=== PATIENT | male | born 1995 | race Caucasian/White ===

== ENCOUNTER 2022-09-21 19:30 | Emergency (ER) | payer OTHER, SELFPAY ==
[2022-09-21 19:40] VITALS: BP 131/81; PULSE 88; RESP 20; TEMP 36.6; O2SAT 100
--- NOTE | 2022-09-21 19:40 | ED.ANIMALBIT ---
HPI - Animal Bite General Chief Complaint: Extremity Injury, Lower Stated Complaint: Dog Bite Time Seen by Provider: 09/21/22 19:36 Source: patient and RN notes reviewed Mode of arrival: ambulatory Limitations: no limitations History of Present Illness complaint: animal bite Onset (ago): hour(s) (1) Animal: dog Description of animal: unknown animal Mechanism: bite Location - Extremities: Left: thigh Pain description: dull Context: unprovoked Associated symptoms: none Related Data Patient tetanus UTD: Yes Allergies Allergy/AdvReac Type Severity Reaction Status Date / Time No Known Allergies Allergy Verified 04/18/22 07:38 Review of Systems Review of Systems: All systems reviewed & are unremarkable except as noted in HPI and below PMFSH Past Medical History Medical History No active medical problems Surgical History Surgical History History of appendectomy May 2011 Family History Family History (System 04/18/22 @ 07:38 by Sina Hsu) Father Healthy adult Mother Healthy adult Social History Social History Smoking status: Never smoker Living arrangements: with family Gender identity (if verbalized by the patient): Male Exam Const: General: healthy appearing, no acute distress and alert Nutritional Appearance: well nourished Orientation/consciousness: patient oriented x3 Limitations: no limitations HENMT: Head: normal to inspection Ears: external ears normal Face/Nose/Sinus: Normal external nose present Face and sinus: normal facial exam Mouth: Yes moist mucous membranes Eyes: Conjunctivae: conjunctivae normal Pupils: Equal, round and reactive pupils present EOM: EOMs intact bilaterally Neck: Neck: normal visual inspection Resp: Effort & Inspection: normal respiratory effort Auscultation: clear to auscultation bilaterally Cardio: Rate: regular rate Rhythm: regular rhythm GI: GI Palp: Yes Soft to palpation and No Tenderness to palpation present (GI) Auscultation: normal bowel sounds Back/Spine/Pelvis: Cervical Spine: cervical ROM normal Thoracic/Lumbar Spine: thoraco-lumbar ROM normal Skin: General skin exam: normal color Rashes: no rashes Wounds: wounds noted puncture wound left lateral upper leg size (3 mm superficial) Neuro: General: patient oriented x3, moves all extremities, no focal motor deficits and CN's II-XI intact bilaterally Speech: normal speech Gait exam (Neuro): Normal gait present Extrem: General: normal to inspection and no clubbing, cyanosis or edema Psych: Mental Status: mental status grossly normal Affect: normal affect Attitude: cooperative Course Vital Signs Vital signs: Vital Signs Temperature 36.6 C 09/21/22 19:40 Pulse Rate 88 09/21/22 19:40 Respiratory Rate 20 09/21/22 19:40 Blood Pressure 131/81 09/21/22 19:40 Pulse Oximetry 100 09/21/22 19:40 Oxygen Delivery Room Air 09/21/22 19:40 Temperature 37.1 C 09/21/22 20:01 Pulse Rate 89 09/21/22 20:01 Respiratory Rate 20 09/21/22 20:01 Blood Pressure 131/81 09/21/22 20:01 Pulse Oximetry 99 09/21/22 20:01 Oxygen Delivery Room Air 09/21/22 20:01 MDM - Animal Bite Differential Diagnosis Differential diagnosis: Likely dog bite Discharge Plan Discharge Clinical Impression: Dog bite Qualifiers: Encounter type: initial encounter Qualified Code(s): W54.0XXA - Bitten by dog, initial encounter Patient Disposition: Home, Self-Care Condition: Stable Instructions: Antibiotic Form, Animal Bite (ED) Prescriptions: New clindamycin HCl 300 mg capsule 300 mg PO TID 7 Days Qty: 21 0RF doxycycline monohydrate 100 mg capsule 100 mg PO BID 7 Days Qty: 14 0RF Follow-up/Referrals: Mejia Ugarte DO [Primary Care Provider] - Time of Disposition: 19:48
[2022-09-21] MEDS: DOXYCYCLINE HYCLATE 100 MG TABLET PO (19:59)
[2022-09-21] MEDS: CLINDAMYCIN HCL 150 MG CAP 300 MG PO (19:59)
[2022-09-21 20:01] VITALS: BP 131/81; PULSE 89; RESP 20; TEMP 37.1; O2SAT 99
== END 2022-09-21 20:03 | disposition home or self-care (01) ==
PROVIDERS: Emergency Provider Emergency Medicine; PCP Family Medicine
DX: S71.152A Open bite, left thigh, initial encounter (principal); W54.0XXA Bitten by dog, initial encounter
CPT/HCPCS: 99283; A9270

== ENCOUNTER 2023-03-15 11:05 | Outpatient (CLI) | payer BC, SELFPAY | END 2023-03-15 11:06 | disposition home or self-care (01) | PROVIDERS: PCP Family Medicine; Visit Provider Family Medicine | DX: T78.40XA Allergy, unspecified, initial encounter (principal) | CPT/HCPCS: 36415; 86003 ==

== ENCOUNTER 2024-10-30 07:33 | Outpatient (CLI) | payer BC, SELFPAY ==
--- OUTSIDE RECORDS SUMMARY | 2024-10-30 07:36 | XMS_ITS | Clinical Summary ---
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 Role Phone Unavailable Primary Care Provider Unavailabl e Social History Tobacco Use Types Packs/Day Years Used Date Smoking Tobacco: Never Assessed Sex and Gender Information Value Date Recorded Sex Assigned at Not on file Legal Sex Male 5:57 PM [employer] Gender Identity Not on file Sexual Orientation Not on file Plan of Treatment Health Maintenance Due Date Last Done Comments Annual Physical 1996 Hepatitis C 2011 DTaP, Tdap and Td Vaccines ( 1 - Tdap) 2012 Hepatitis B Vaccines (1 of 3 - 19+ 3-dose series) 2012 COVID-19 Vaccine ( - 2023-2 5 season) 2024 HPV Vaccines Aged Out No longer eligi ble based on patient's age to complete this topic Meningococcal B Vaccine Aged Out No l onger eligible based on patient's age to complete this topic Meningococcal Vaccine Aged Out No royer jakub eligible based on patient's age to complete this topic Pneumococcal Vaccine: Pediat rics (0 to 5 Years) and At-Risk Patients (6 to 49 Years) Aged Out No longer eligible b ased on patient's age to complete this topic RSV Immunizations Under 20 Months Aged Out No longer eligible based on patient's age to complete this topic
[2024-10-30 07:44] LABS: Basophils Absolute Auto 0.07 K/mm3 (0.00-0.10); Basophils Percent Auto 1.1 % (0.0-1.0); Eosinophils Absolute Auto 0.25 K/mm3 (0.02-0.50); Eosinophils Percent Auto 4.1 % (1.0-6.0); Hematocrit 47.6 % (40.0-54.0); Hemoglobin 16.7 g/dL (14.0-18.0); Immature Granulocyte Absolute 0.02 K/mm3 (0.00-0.00); Immature Granulocyte Percent A 0.3 % (0.0-0.0); Lymphocytes Absolute Auto 1.87 K/mm3 (1.10-4.50); Lymphocytes Percent Auto 30.7 % (18.0-42.0); Mean Corpuscular HGB Conc 35.1 g/dL (32-36); Mean Corpuscular Hemoglobin 33.7 pg (27.0-31.0); Mean Platelet Volume 9.4 fl (8.7-11.0); Monocytes Absolute Auto 0.55 K/mm3 (0.10-0.90); Neutrophils Absolute Auto 3.33 K/mm3 (1.70-7.20); Neutrophils Percent Auto 54.8 % (50.0-70.0); Platelet Count Result 171 K/mm3 (150-420); Red Blood Count 4.96 M/mm3 (4.70-6.10); Red Cell Distribution Width 12.7 % (11.6-14.4); White Blood Count 6.1 K/mm3 (4.8-10.8)
[2024-10-30 10:22] LABS: Alanine Aminotransferase 47 U/L (16-63); Albumin Level 3.8 g/dL (3.4-5.0); Alkaline Phosphatase 99 U/L (46-116); Anion Gap 9 mmol/L (4-12); Aspartate Amino Transferase 16 U/L (15-37); Bilirubin,Total 0.7 mg/dL (0.00-1.00); Blood Urea Nitrogen 13 mg/dL (7-18); Calcium 8.9 mg/dL (8.5-10.1); Carbon Dioxide 30 mmol/L (21-32); Chloride 105 mmol/L (98-108); Cholesterol 146 mg/dL (0-200); Estimated Glomerular Filt Rate > 60; Glucose 88 mg/dL (70-99); HDL Direct 61 mg/dL (40-60); LDL Cholesterol Calculated 67 mg/dL (<130); Osmolality Calculated 297 mOsm/kg (285-295); Potassium 4.3 mmol/L (3.5-5.1); Sodium 144 mmol/L (136-145); Triglycerides 89 mg/dL (0-150)
[2024-10-30 10:58] LABS: Thyroid Stimulating Hormone Reflex 1.75 u/IU/mL (0.36-3.74)
== END 2024-10-30 07:34 | disposition home or self-care (01) ==
LOC: CHSLAB 07:34
PROVIDERS: PCP Family Medicine; Visit Provider Family Medicine
DX: Z00.00 Encounter for general adult medical examination without abnormal findings (principal); E03.9 Hypothyroidism, unspecified
CPT/HCPCS: 36415; 80053; 80061; 84443; 85025